=== PATIENT | male | born 1990 | race African-American/Black ===

== ENCOUNTER 2017-03-19 09:15 | Emergency (ER) | payer OTHER ==
[2017-03-19] MEDS ORDERED: IBUPROFEN 800 MG TABLET PO ONE (09:51)
[2017-03-19] MEDS ORDERED: CYCLOBENZAPRINE HCL 10 MG TABLET PO ONE (09:51)
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
[2017-03-19 11:21] VITALS: BP 129/73
== END 2017-03-19 11:21 | disposition home or self-care (01) ==
LOC: ER 09:15
DX: S16.1XXA Strain of muscle, fascia and tendon at neck level, initial encounter (principal); S39.012A Strain of muscle, fascia and tendon of lower back, initial encounter; M54.2 Cervicalgia; M54.9 Dorsalgia, unspecified; M25.512 Pain in left shoulder; V87.7XXA Person injured in collision between other specified motor vehicles (traffic), initial encounter
CPT/HCPCS: 72050; 99284

== ENCOUNTER 2020-01-30 17:21 | Emergency (ER) | payer SELFPAY ==
[2020-01-30] MEDS ORDERED: EPINEPHRINE INJ/PF 1 MG/1 ML AMPULE IM ONE (18:00)
[2020-01-30] MEDS ORDERED: METHYLPREDNISOLONE INJ 125 MG/2 ML SDV IM ONE (18:00)
[2020-01-30] MEDS ORDERED: DIPHENHYDRAMINE HCL 25 MG CAPSULE PO ONE (18:00)
--- NOTE | 2020-01-30 18:03 | ER Document Report ---
ED Medical Screen (RME) - General Chief Complaint: Allergic Reaction Stated Complaint: POSSIBLE ALLERGIC REACTION Time Seen by Provider: 01/30/20 17:52 Mode of Arrival: Ambulatory Information source: Patient Notes: HPI; 30-year-old male presents to the emergency room after eating pecans around 1:45. States he feels like his throat is starting to swell and close. No nut allergy. Took 1 dose of Benadryl with minimal relief. Handling secretions. Talking in full sentences. PE: Alert and oriented x3. Lungs: Clear to auscultation without rales, rhonchi, wheezes. Heart: Bradycardic without murmurs, rubs, gallops. Able to talk in full sentences. Handling his own secretions. Charge nurse aware. Patient will go directly to room. I have greeted and performed a rapid initial assessment of this patient. A comprehensive ED assessment and evaluation of the patient, analysis of test results and completion of the medical decision making process will be conducted by additional ED providers. I have specifically instructed the patient or family members with the patient to immediately return to any nursing staff should anything change in the patient's condition or with their chief complaint. TRAVEL OUTSIDE OF THE [place] IN LAST 30 DAYS: No - Related Data Allergies/Adverse Reactions: pcn Allergy (Uncoded 03/19/17 09:19) Past Medical History Pulmonary Medical History: Reports: Hx Sleep Apnea Renal/ Medical History: Denies: Hx Peritoneal Dialysis Musculoskeltal Medical History: Reports Hx Arthritis Psychiatric Medical History: Reports: Hx Anxiety, Hx Depression - Immunizations Immunizations up to date: Yes
[2020-01-30] MEDS ORDERED: DIPHENHYDRAMINE HCL 50 MG/ML VIAL ONE (18:05)
--- NOTE | 2020-01-30 19:23 | ER Document Report ---
ED Allergic Reaction - General Chief Complaint: Allergic Reaction Stated Complaint: POSSIBLE ALLERGIC REACTION Time Seen by Provider: 01/30/20 17:52 Primary Care Provider: [facility] [Primary Care Provider] - Follow up as needed Mode of Arrival: Ambulatory Notes: HPI: 30-year-old male with past medical history as recorded including an allergy to honey, bees, and penicillin who presents today feeling something "in the back of my throat" after eating what he states for pecans around 1:30 PM. He denies any other possible allergen such as new medications, [id number] supplements, bath and body products, or other acute contacts. No cough or fever. No belly pain or vomiting. Patient took Benadryl himself and when he arrived here he was provided an epinephrine pen and steroids. Patient states he does feel "better". ROS: See HPI All other review of systems reviewed and otherwise negative Reviewed vital signs and nursing note as charted by RN. PHYSICAL EXAM: CONSTITUTIONAL: Alert and oriented and responds appropriately to questions. Well-appearing; well-nourished HEAD: Normocephalic; atraumatic EYES: PERRL; Conjunctivae clear, sclerae non-icteric ENT: Normal nose; no rhinorrhea; moist mucous membranes; patient has some minimal uvular edema with no peritonsillar swelling or posterior pharyngeal erythema. No stridor or wheezing NECK: Supple without meningismus; non-tender; no cervical lymphadenopathy, no masses CARD: Regular rate and rhythm; no murmurs; symmetric distal pulses RESP: Normal chest excursion without splinting or tachypnea; breath sounds clear and equal bilaterally; no wheezes, no rhonchi, no rales ABD/GI: Normal bowel sounds; non-distended; soft, non-tender BACK: The back appears normal and is non-tender to palpation EXT: Normal ROM in all joints; non-tender to palpation; no edema SKIN: No rash noted NEURO: Full range of motion of all 4 extremities PSYCH: The patient's mood and manner are appropriate. Grooming and personal hygi raymond are appropriate. TRAVEL OUTSIDE OF THE [place] IN LAST 30 DAYS: No - Related Data Allergies/Adverse Reactions: pcn Allergy (Uncoded 03/19/17 09:19) Home Medications: duloxitine. zyrtec Past Medical History - General Information source: Patient - Social History Smoking Status: Never Smoker Chew tobacco use (# tins/day): No Frequency of alcohol use: None Drug Abuse: None Family History: Reviewed & Not Pertinent Pulmonary Medical History: Reports: Hx Sleep Apnea Renal/ Medical History: Denies: Hx Peritoneal Dialysis Musculoskeletal Medical History: Reports Hx Arthritis Psychiatric Medical History: Reports: Hx Anxiety, Hx Depression - PTSD , anxiety Past Surgical History: Reports: Hx Orthopedic Surgery - rotator cuff repair - Immunizations Immunizations up to date: Yes Physical Exam - Vital signs Vitals: Resp Pulse Ox 21 H 96 01/30/20 18:11 01/30/20 18:11 Course - Re-evaluation Re-evalutation: Given the above history and physical examination, we will continue to watch the patient and reassess the patient's posterior pharyngeal region after epinephrine was provided. Patient has been given steroids. He does feel much improved. No lip, tongue, or mucosal swelling. 01/30/20 20:38 Patient's uvula edema slightly improved. Patient will be observed for short period of time and discharged home with continues to look excellent. Patient signed out to oncoming provider. - Vital Signs Vital signs: Temp Pulse Resp BP Pulse Ox 19 129/67 H 96 01/30/20 19:01 01/30/20 19:01 01/30/20 19:01 Discharge - Discharge Clinical Impression: Acute allergic reaction Qualifiers: Encounter type: initial encounter Qualified Code(s): T78.40XA - Allergy, unspecified, initial encounter Condition: Good Disposition: HOME, SELF-CARE Additional Instructions: Come back immediately for any increased swelling, fullness, fever, cough, vomiting, or any other acute problems. Please make sure that you follow-up the primary care physician for reassessment and take the 2 days of steroids we have provided. Prescriptions: Prednisone [Deltasone 20 mg Tablet] 60 mg PO DAILY 2 Days #6 tablet Prednisone [Deltasone 20 mg Tablet] 3 tab PO DAILY 2 Days #6 tablet Referrals: [facility] [Primary Care Provider] - Follow up as needed
[2020-01-30 20:57] VITALS: BP 136/69
== END 2020-01-30 20:56 | disposition home or self-care (01) ==
LOC: ER 17:21
DX: T78.40XA Allergy, unspecified, initial encounter (principal); R60.0 Localized edema; F32.9 Major depressive disorder, single episode, unspecified; F41.9 Anxiety disorder, unspecified; Z79.899 Other long term (current) drug therapy; Z91.018 Allergy to other foods; Z91.030 Bee allergy status
CPT/HCPCS: 99284; 96372; J0171; J2930